=== PATIENT | female | born 1955 | race Caucasian/White ===

== ENCOUNTER 2016-12-11 15:33 | Emergency (ER) | payer OTHER, BC ==
[~2016-12-11] VITALS: Ht 167.6 cm; Wt 113.4 kg
--- NOTE | 2016-12-11 15:33 | NUR ---
Patient BIBA ACLS, transferred to bed 8. RN evaluating patient at bedside.
--- NOTE | 2016-12-11 15:40 | NUR ---
PT BIBA FOR EVALUATION OF DIZZINESS X30 MINUTES AND 1 EPISODE OF N/V. HX HTN, COPD, HYPERLIPIDEMIA. DENIES DIARRHEA; SKIN IS PINK/WARM/DRY; AAOX4 WITH EVEN AND STEADY GAIT; LUNGS CLEAR BL; HR EVEN AND REGULAR; PT DENIES ANY FEVER, CP, SOB, OR COUGH AT THIS TIME; PATIENT STATES PAIN OF 0/10 AT THIS TIME; VSS; PATIENT POSITIONED FOR COMFORT; HOB ELEVATED; BEDRAILS UP X2; BED DOWN. ER MD MADE AWARE OF PT STATUS.
[2016-12-11 15:41] VITALS: BP 140/60
--- NOTE | 2016-12-11 15:50 | NUR ---
Dr. Caputo evaluating patient at bedside.
[2016-12-11 16:27] LABS: ANION GAP 9.2 (8-16); CARBON DIOXIDE 28.8 mmol/L (21-32); CREATININE 0.9 mg/dL (0.6-1.3)
[2016-12-11 16:29] LABS: MEAN CORPUSCULAR HGB CONC 32 g/dL (33-37); RED BLOOD CELL COUNT(AUTO) 4.84 MIL/uL (4.20-5.40); WHITE BLOOD COUNT (AUTO) 12.1 K/uL (4.8-10.8)
[2016-12-11 16:34] LABS: ALBUMIN 3.4 g/dL (3.4-5.0); TOTAL BILIRUBIN 0.3 mg/dL (0.0-1.0)
[2016-12-11 16:37] LABS: BASOPHILS # (AUTO) 0.3 K/uL (0.00-0.22); EOSINOPHILS # (AUTO) 0.3 K/uL (0-0.4); HEMATOCRIT 42.2 % (36-48); HEMOGLOBIN 13.5 g/dL (12.0-16.0); LYMPHOCYTES # (AUTO) 1.3 K/uL (2.5-16.5); MEAN CORPUSCULAR HEMOGLOBIN 28 pg (27-31); MEAN CORPUSCULAR VOLUME 87 fL (80-94); MONOCYTES # (AUTO) 0.4 K/uL (0.8-1.0); NEUTROPHILS # (AUTO) 9.8 K/uL (1.8-7.7); PLATELET COUNT (AUTO) 280 K/uL (140-450); RED CELL DISTRIBUTION WIDTH 14.5 % (11.6-13.7)
--- NOTE | 2016-12-11 17:12 | NUR ---
AAO PT ENCOURAGE TO PROVIDE URINE SAMPLE, UNABLE TO GO TO THE RESTROOM AT THIS TIME
[2016-12-11 17:51] LABS: BILIRUBIN,URINE 1+ (NEGATIVE); BLOOD, URINE TRACE-L (NEGATIVE); COLOR,URINE YELLOW (YELLOW); LEUKOCYTE ESTERASE ,URINE NEGATIVE (NEGATIVE); NITRITE, URINE POSITIVE (NEGATIVE); UGLUCOSE NEGATIVE (NEGATIVE)
[2016-12-11 17:53] LABS: APPEARANCE,URINE HAZY (CLEAR)
--- NOTE | 2016-12-11 18:05 | NUR ---
PT AMBULATES TO [facility] FOR URINE SAMPLE, SEND TO THE LAB
[2016-12-11 18:08] LABS: RBC,URINE 0-5 (RARE) /HPF (0-5); WBC,URINE 0-5 (RARE) /HPF (0-5)
[2016-12-11 18:15] VITALS: BP 154/84
--- NOTE | 2016-12-11 18:15 | NUR ---
Patient discharged with v/s stable. Written and verbal after care instructions given and explained. Patient verbalized understanding. Ambulatory with steady gait. All questions addressed prior to discharge. Advised to follow up with PMD.
== END 2016-12-11 18:15 | disposition home or self-care (01) ==
LOC: MED 15:33
DX: E86.0 Dehydration (principal); F17.210 Nicotine dependence, cigarettes, uncomplicated; Z88.0 Allergy status to penicillin; R42 Dizziness and giddiness
CPT/HCPCS: 36415; 71010; 80053; 81001; 84484; 85025; 87086; 93005; 99285; Q0092